=== PATIENT | female | born 1995 | race Caucasian/White ===

== ENCOUNTER → 2024-04-21 06:15 | Day surgery (SDC) | payer BC, SELFPAY | LOC: GI 06:15 | PROVIDERS: ATTENDING PHYSICIAN Internal Medicine Gastroenterology | DX: K29.70 Gastritis, unspecified, without bleeding (principal); K31.89 Other diseases of stomach and duodenum; R49.0 Dysphonia; F45.8 Other somatoform disorders | CPT/HCPCS: 43239; 88305; 88342 ==